=== PATIENT | female | born 1960 | race Caucasian/White ===

== ENCOUNTER 2017-04-07 22:11 | Emergency (ER) | payer OTHER ==
[~2017-04-07] VITALS: Ht 170.2 cm; Wt 114.5 kg
[~2017-04-07 22:11] MED LIST: ADVAIR HFA120 INHALA IH; ALBUTEROL17 GM IH; ALLOPURINOL100 MG PO; ALPRAZOLAM0.25 M2 PO; AMLODIPINE BESY10 MG PO; ASPIRIN81 M2 PO; AUGMENTIN875 MG PO; BENAZEPRIL HCL20 MG PO; BUPROPION XL150 MG PO; CIPRO500 MG PO; COLCRYS0.6 MG PO; COMBIVENT RESPIM4 GM IH; DICLOFENAC SODI75 MG PO; DULOXETINE HCL60 MG PO; EFFEXOR75 MG PO; FENOFIBRATE160 M1 PO; FLOVENT DISKUS1 DIS2 IH; GABAPENTIN400 MG PO; Habitrol,Nicoderm CQ TD; LANSOPRAZOLE30 MG PO; LEVAQUIN500 MG PO; LIPITOR40 MG PO; LYRICA300 MG PO; Levaquin PO; METFORMIN HCL1000 MG PO; METFORMIN HCL500 MG PO; METOPROLOL SUCC25 MG PO; OXYCODONE-APAP1 EACH PO; PIOGLITAZONE HC45 MG PO; PREDNISONE5 MG PO; SANTYL30 GM TP; SPIRIVA1 INHALATI IH; VENLAFAXINE HCL75 M3 PO
[2017-04-07 22:48] LABS: HEMATOCRIT 38.8 % (36.0-46.0); HEMOGLOBIN 12.7 G/DL (11.9-15.5); MCH 32.4 PG (29.0-34.0); MCHC 32.7 G/DL (30.0-36.0); PLATELET COUNT 220 K/uL (156-360); RBC DIS.WIDTH-CV 13.2 % (11.8-14.6); RBC DIS.WIDTH-SD 47.8 % (39-53); RED BLOOD COUNT 3.92 M/uL (3.80-5.20); WHITE BLOOD COUNT 8.6 K/uL (4.1-10.2)
[2017-04-07 23:04] LABS: ALBUMIN 3.7 g/dL (3.2-4.8); CHLORIDE 104 mEq/L (99-109); POTASSIUM 4.3 mEq/L (3.7-5.4); SODIUM 140 mEq/L (136-147)
[2017-04-07 23:06] LABS: GLUCOSE 112 mg/dL (70-99)
[2017-04-07 23:08] LABS: TOTAL BILIRUBIN 0.1 mg/dL (0.0-1.0)
[2017-04-07 23:10] LABS: ALKALINE PHOSPHATASE 157 IU/L (3-129); GFR ESTIMATE (CALCULATED) > 59 mL/min/
[2017-04-07 23:11] LABS: UREA NITROGEN (BUN) 18 mg/dL (9-23)
[2017-04-07 23:12] LABS: AST (GOT) 15 IU/L (2-34)
[2017-04-07 23:13] LABS: ALT (GPT) 14 IU/L (3-49)
[2017-04-08] MEDS ORDERED: KEFLEX500 MG PO (00:21)
[2017-04-08 00:42] VITALS: BP 120/80
== END 2017-04-08 00:45 | disposition home or self-care (01) ==
LOC: EME 22:11
DX: L03.116 Cellulitis of left lower limb (principal); E11.9 Type 2 diabetes mellitus without complications; J44.9 Chronic obstructive pulmonary disease, unspecified; I10 Essential (primary) hypertension; E78.5 Hyperlipidemia, unspecified; K21.9 Gastro-esophageal reflux disease without esophagitis; F41.9 Anxiety disorder, unspecified; F17.200 Nicotine dependence, unspecified, uncomplicated; Z79.84 Long term (current) use of oral hypoglycemic drugs; Z79.82 Long term (current) use of aspirin; Z88.5 Allergy status to narcotic agent; Z88.1 Allergy status to other antibiotic agents
CPT/HCPCS: 80053; 85027; 99281; 99283